=== PATIENT | female | born 1960 | race Caucasian/White ===

== ENCOUNTER → 2021-03-30 | Outpatient (CLI) | payer OTHER ==
[~2021-03-30] MED LIST: POTASSIUM CHLO10 ME2 PO
== END ==
LOC: MAMO 05-10 15:30
DX: Z12.31 Encounter for screening mammogram for malignant neoplasm of breast (principal)
CPT/HCPCS: 77063; 77067

== ENCOUNTER 2021-04-13 18:28 | Emergency (ER) | payer OTHER ==
[2021-04-13 19:32] LABS: HEMOGLOBIN 12.8 gm/dl (12.3-15.3); RED BLOOD COUNT 4.04 M/UL (4.00-5.10); WHITE BLOOD COUNT 6.9 K/UL (4.5-11.0)
[2021-04-13 20:06] LABS: BUN/CREATININE RATIO 13 (0-10)
[2021-04-14 01:36] LABS: BUN/CREATININE RATIO 10 (0-10)
[2021-04-14] MEDS ORDERED: POTASSIUM CHLO10 ME2 PO (01:51)
== END 2021-04-14 02:03 | disposition home or self-care (01) ==
LOC: ER1 18:28
PROVIDERS: Student in an Organized Health Care Education/Training Program
DX: E87.6 Hypokalemia (principal); R20.2 Paresthesia of skin
CPT/HCPCS: 70450; 70496; 70498; 80053; 81001; 82550; 82553; 83605; 83690; 83735; 83874; 84100; 84484; 84702; 85025; 93005; 96365; 96375; 96376; 99284; J3475; J3480; J7070; Q9967

== ENCOUNTER 2021-10-07 09:22 | Emergency (ER) | payer OTHER | END 2021-10-07 11:55 | disposition home or self-care (01) | LOC: ER1 09:22 | DX: R04.0 Epistaxis (principal) | CPT/HCPCS: 99283 ==

== ENCOUNTER 2021-10-10 23:26 | Emergency (ER) | payer OTHER ==
[2021-10-11 00:19] LABS: HEMOGLOBIN 12.1 gm/dl (12.3-15.3); RED BLOOD COUNT 3.86 M/UL (4.00-5.10); WHITE BLOOD COUNT 10.1 K/UL (4.5-11.0)
[2021-10-11 00:40] LABS: BUN/CREATININE RATIO 21 (0-10)
[2021-10-11 04:33] LABS: BUN/CREATININE RATIO 19 (0-10)
== END 2021-10-11 04:55 | disposition home or self-care (01) ==
LOC: ER1 23:26
PROVIDERS: Emergency Medicine; Physician Assistant
DX: E87.6 Hypokalemia (principal); E83.51 Hypocalcemia; E83.42 Hypomagnesemia; E78.5 Hyperlipidemia, unspecified; I10 Essential (primary) hypertension; Z90.49 Acquired absence of other specified parts of digestive tract; Z90.710 Acquired absence of both cervix and uterus
CPT/HCPCS: 80053; 82550; 82553; 83735; 83874; 84484; 85025; 93005; 96365; 96366; 96368; 99284; J0610; J3475; J7030

== ENCOUNTER 2021-10-11 23:25 | Emergency (ER) | payer OTHER ==
[2021-10-12 01:22] LABS: RED BLOOD COUNT 3.72 M/UL (4.00-5.10); WHITE BLOOD COUNT 8.9 K/UL (4.5-11.0)
[2021-10-12 01:54] LABS: BUN/CREATININE RATIO 19 (0-10)
== END 2021-10-12 04:14 | disposition home or self-care (01) ==
LOC: ER1 23:25
PROVIDERS: Physician Assistant
DX: J40 Bronchitis, not specified as acute or chronic (principal); J06.9 Acute upper respiratory infection, unspecified; I10 Essential (primary) hypertension; E78.5 Hyperlipidemia, unspecified; Z20.822 Contact with and (suspected) exposure to COVID-19
CPT/HCPCS: 71045; 80053; 83735; 85025; 87081; 87880; 99283; U0002

== ENCOUNTER 2022-01-14 17:28 | Emergency (ER) | payer OTHER ==
[2022-01-14 19:37] LABS: HEMOGLOBIN 12.9 gm/dl (12.3-15.3); RED BLOOD COUNT 4.17 M/UL (4.00-5.10); WHITE BLOOD COUNT 7.9 K/UL (4.5-11.0)
[2022-01-14 19:49] LABS: BUN/CREATININE RATIO 26 (0-10)
== END 2022-01-14 22:45 | disposition home or self-care (01) ==
LOC: ER1 17:28
PROVIDERS: Emergency Medicine
DX: R07.9 Chest pain, unspecified (principal); I10 Essential (primary) hypertension; Z79.82 Long term (current) use of aspirin; Z79.899 Other long term (current) drug therapy
CPT/HCPCS: 71045; 80053; 82550; 82553; 83735; 83874; 84484; 85025; 93005; 99285

== ENCOUNTER 2022-06-21 13:14 | Emergency (ER) | payer OTHER ==
[2022-06-21 13:46] LABS: HEMOGLOBIN 13.8 gm/dl (12.3-15.3); RED BLOOD COUNT 4.32 M/UL (4.00-5.10); WHITE BLOOD COUNT 9.1 K/UL (4.5-11.0)
[2022-06-21 14:17] LABS: BUN/CREATININE RATIO 18 (0-10)
[2022-06-21] MEDS ORDERED: K-TAB ER20 MEQ PO (15:27)
== END 2022-06-21 15:44 | disposition home or self-care (01) ==
LOC: ER1 13:14
DX: R07.2 Precordial pain (principal); I10 Essential (primary) hypertension; E78.5 Hyperlipidemia, unspecified; Z20.822 Contact with and (suspected) exposure to COVID-19
CPT/HCPCS: 71045; 80053; 82550; 82553; 84484; 85025; 93005; 99285; U0002